=== PATIENT | female | born 2000 | race Hispanic/Latino ===

== ENCOUNTER 2021-12-26 21:19 | Emergency (ER) | payer OTHER ==
[~2021-12-26] VITALS: Ht 165.1 cm; Wt 86.2 kg
[2021-12-26] MEDS ORDERED: FAMOTIDINE 20MG TAB ONE (21:23)
[2021-12-26] MEDS ORDERED: SOLU-MEDROL 125MG VIAL ONE (21:23)
[2021-12-26] MEDS ORDERED: DiphenhydrAMINE HCL 50 MG/ML VIAL ONE (21:23)
[2021-12-26] MEDS ORDERED: IPRATROPIUM/ALBUTEROL SULFATE 3 ML SOLUTION IH ONE (21:30)
[2021-12-26] MEDS ORDERED: FAMOTIDINE 20MG TAB PO ONE (21:30)
[2021-12-26] MEDS ORDERED: DiphenhydrAMINE HCL 50 MG/ML VIAL IV ONE (21:30)
[2021-12-26] MEDS ORDERED: SOLU-MEDROL 125MG VIAL IVP ONE (21:30)
[2021-12-26] MEDS ORDERED: CETI1SOL17 PO (22:57)
[2021-12-26] MEDS ORDERED: EPIN0.3P3 IJ (22:57)
[2021-12-26] MEDS ORDERED: PRED20TA3 PO (22:57)
[2021-12-26] MEDS ORDERED: FAMO-136 PO (22:57)
[2021-12-26 23:05] VITALS: BP 114/57
== END 2021-12-26 23:24 | disposition home or self-care (01) ==
LOC: EDH 21:19 → EEVIPCON 21:19 → EDH 23:24
DX: L50.9 Urticaria, unspecified (principal); Z79.899 Other long term (current) drug therapy
CPT/HCPCS: 94640; 96374; 96375; 99284; J1200; J2930